=== PATIENT | male | born 1965 | race Caucasian/White ===

== ENCOUNTER 2020-08-02 13:49 | Outpatient (REF) | payer MEDICAID, SELFPAY | END 2020-08-02 13:50 | disposition home or self-care (01) | LOC: HO.LAB 13:49 | PROVIDERS: Visit Provider Internal Medicine | DX: Z20.828 Contact with and (suspected) exposure to other viral communicable diseases (principal) | CPT/HCPCS: 36415; C9803; U0003 ==

== ENCOUNTER 2021-08-13 13:58 | Outpatient (REF) | payer MEDICAID, SELFPAY | END 2021-08-13 13:59 | disposition home or self-care (01) | LOC: HO.US 13:58 | PROVIDERS: PCP Internal Medicine; Visit Provider Internal Medicine | DX: Z13.89 Encounter for screening for other disorder (principal) ==

== ENCOUNTER 2021-08-14 10:37 | Outpatient (REF) | payer MEDICAID, SELFPAY ==
--- NOTE | ~2021-08-14 | US_ITS ---
EXAMINATION: US RETROPERITONEAL COMPLETE (RENAL) CLINICAL INFORMATION: Kidney stone. COMPARISON: None TECHNIQUE: Real-time imaging of the kidneys and bladder. FINDINGS: RIGHT KIDNEY: 11.8 x 6.2 x 6.7 cm (SAG x AP x TRV). The kidney is normal in size, contour, and echogenicity. Renal cortical thickness is normal. No focal parenchymal lesions or hydronephrosis. Within the midpole there is a 3 mm echogenic focus likely representing a nonobstructing calculus. Within the lower pole there is a 3 mm echogenic focus likely representing a nonobstructing calculus. LEFT KIDNEY: 11.4 x 6.5 x 5.5 cm (SAG x AP x TRV). The kidney is normal in size, contour, and echogenicity. Renal cortical thickness is normal. No renal calculi or hydronephrosis. Within the lower pole there is a 1.4 cm simple-appearing cyst. BLADDER: Well distended and normal. Bilateral ureteral jets are demonstrated. Prevoid bladder volume is 432 mL. Postvoid bladder volume is 30.7 mL. ADDITIONAL FINDINGS: Prostate is enlarged with a volume of 51 mL. US/US retroperitoneal comp IMPRESSION: Nonobstructing right renal calculi. 1.4 cm left renal lower pole cyst. Small postvoid residual. Enlarged prostate gland. No evidence of obstructive uropathy.
== END 2021-08-14 10:38 | disposition home or self-care (01) ==
LOC: HO.HMGCX 10:37
PROVIDERS: PCP Internal Medicine; Visit Provider Internal Medicine
DX: N20.0 Calculus of kidney (principal)
CPT/HCPCS: 76770

== ENCOUNTER → 2021-10-14 10:55 | Outpatient (BNVA) | payer MEDICAID, SELFPAY | PROVIDERS: PCP Internal Medicine | DX: N20.0 Calculus of kidney (principal); R73.03 Prediabetes; F17.210 Nicotine dependence, cigarettes, uncomplicated; Z88.0 Allergy status to penicillin | CPT/HCPCS: 99202 ==

== ENCOUNTER 2021-11-20 14:21 | Outpatient (REF) | payer MEDICAID, SELFPAY ==
--- NOTE | ~2021-11-20 | US_ITS ---
EXAMINATION: US RETROPERITONEAL LIMITED (RENAL ONLY) CLINICAL INFORMATION: Calculus of kidney. COMPARISON: US retroperitoneal complete (renal) 08/14/2021. TECHNIQUE: Real-time imaging of the kidneys. FINDINGS: RIGHT KIDNEY: 11.2 x 5.2 x 5.5 cm (SAG x AP x TRV). The kidney is normal in size, contour, and echogenicity. Renal cortical thickness is normal. No focal parenchymal lesions or hydronephrosis. At the interpolar aspect, a 3 mm nonobstructing calculus is seen, with twinkle artifact. At the lower pole, a 3 mm nonobstructing calculus is seen, with twinkle artifact. LEFT KIDNEY: 11.3 x 6.2 x 5.6 cm (SAG x AP x TRV). The kidney is normal in size, contour, and echogenicity. Renal cortical thickness is normal. No renal calculi. There is mild pelviectasis, without terrence hydronephrosis. At the lower pole, a 1.3 cm in maximal diameter simple cyst is seen. US/US renal BI IMPRESSION: 1. Nonobstructing right renal calculi are seen. There is no right hydronephrosis. 2. No left renal calculus is seen. There is mild left pelviectasis, without terrence hydronephrosis. 3. A 1.3 cm left renal lower pole cyst is incidentally noted..
== END 2021-11-20 14:22 | disposition home or self-care (01) ==
LOC: HO.US 14:21
DX: N20.0 Calculus of kidney (principal); N28.1 Cyst of kidney, acquired
CPT/HCPCS: 76775

== ENCOUNTER → 2021-11-25 15:28 | Outpatient (BNVA) | payer MEDICAID, SELFPAY | PROVIDERS: PCP Internal Medicine | DX: N20.0 Calculus of kidney (principal) | CPT/HCPCS: 99212 ==

== ENCOUNTER → 2021-11-28 15:26 | Outpatient (BNVA) | payer MEDICAID, SELFPAY | PROVIDERS: PCP Internal Medicine; Referring Provider Internal Medicine; Visit Provider Nurse Practitioner | DX: Z12.11 Encounter for screening for malignant neoplasm of colon (principal) | CPT/HCPCS: 99202 ==

== ENCOUNTER 2021-11-29 10:02 | Outpatient (REF) | payer MEDICAID, SELFPAY ==
[2021-11-29 10:23] LABS: MANUAL DIFF FLAG NO
[2021-11-29 10:47] LABS: Basophils Percent Auto 0.5 % (0-2); Eosinophils Absolute Auto 0.2 X10*3/uL (0.0-0.4); Eosinophils Percent Auto 2.1 % (0-4); Hematocrit 43.2 % (42.0-52.0); Hemoglobin 14.6 g/dl (14.0-18.0); Imm Gran Abs Auto 0.05 X10*3/uL (0.00-0.03); Imm Gran Pct Auto 0.6 % (0.0-0.4); Mean Corpuscular HGB Conc 33.8 g/dl (31.0-36.0); Mean Corpuscular Volume 88.7 fL (80.0-98.0); Mean Platelet Volume 11.5 fL (9.4-12.4); Monocytes Absolute Auto 0.6 X10*3/uL (0.1-1.2); Monocytes Percent Auto 7.5 % (2-11); Neutrophils Absolute Auto 5.7 x10*3/uL (2.0-8.3); Neutrophils Percent Auto 66.3 % (45-73); Platelet Count 179 X10*3/uL (160-400); Red Blood Count 4.87 X10*6/uL (4.60-5.80); Red Cell Distribution Width 13.5 % (11.0-16.0); White Blood Count 8.6 X10*3/uL (4.8-10.8)
[2021-11-29 11:15] LABS: Alanine Aminotransferase 33 U/L (0-40); Albumin Level 4.3 g/dL (3.5-5.0); Alkaline Phosphatase 145 U/L (39-117); Anion Gap 11 (12-20); Aspartate Amino Transferase 20 U/L (5-37); Bilirubin Total 0.4 mg/dL (0.0-1.0); Blood Urea Nitrogen 8 mg/dL (9-16); Calcium 9.5 mg/dL (8.4-10.2); Carbon Dioxide 28 mmol/L (22-29); Chloride 104 mmol/L (96-108); Estimated Glomerular Filt Rate > 60; Glucose Random 106 mg/dL (60-115); Potassium 4.3 mmol/L (3.3-5.1); Sodium 139 mmol/L (135-145); Total Protein 6.8 g/dL (6.5-8.0)
== END 2021-11-29 10:03 | disposition home or self-care (01) ==
LOC: HO.LAB 10:02
PROVIDERS: PCP Internal Medicine; Visit Provider Nurse Practitioner
DX: Z12.11 Encounter for screening for malignant neoplasm of colon (principal)
CPT/HCPCS: 36415; 80053; 85025

== ENCOUNTER 2022-05-02 08:09 | Outpatient (REF) | payer MEDICAID, SELFPAY ==
--- NOTE | ~2022-05-02 | US_ITS ---
EXAMINATION: US RETROPERITONEAL LIMITED (RENAL ONLY) CLINICAL INFORMATION: Calculus of kidney. COMPARISON: Renal ultrasound 11/20/2021 and 08/14/2021. TECHNIQUE: Real-time imaging of the kidneys. FINDINGS: RIGHT KIDNEY: 10.6 x 4.5 x 6.7 cm (SAG x AP x TRV). The kidney is normal in size, contour, and echogenicity. Renal cortical thickness is normal. There are two 3 mm stones in the mid and lower pole. No focal parenchymal lesions or hydronephrosis. LEFT KIDNEY: 11.1 x 6.5 x 5.7 cm (SAG x AP x TRV). The kidney is normal in size, contour, and echogenicity. Renal cortical thickness is normal. There is a 1 x 1.2 cm cyst in the lower pole. No renal calculi or hydronephrosis. US/US renal BI IMPRESSION: Right renal stones. Small left renal cyst.
== END 2022-05-02 08:10 | disposition home or self-care (01) ==
LOC: HO.US 08:09
PROVIDERS: Visit Provider Urology
DX: N20.0 Calculus of kidney (principal)
CPT/HCPCS: 76775

== ENCOUNTER 2022-06-30 07:32 | Day surgery (SDC) | payer MEDICAID, SELFPAY ==
--- NOTE | 2022-06-27 13:56 | HO.ANESPROP2 ---
Documented by User: Brenda Torres NP 06/27/22 13:57 HPI - Anesthesia Eval Consult details Narrative: 57yo M for Colonoscopy PMFSH Active Problems Active Problems: All Active Problems (Updated 11/28/21 @ 15:33 by STACEY Ness) Colon cancer screening (Acute) Gingivitis (Acute) High cholesterol (Acute) Pre-diabetes (Acute) Headache syndrome (Acute) Renal calculi (Acute) Past Medical History Medical History Gingivitis History of kidney stones Periodontitis Renal calculi Surgical History Surgical History H/O cystoscopy History of abdominal surgery Hx of cholecystectomy Social History Social History (Updated 06/30/22 @ 08:23 by Princess Pugh MD) Patient Tobacco Use Status: Current everyday Tobacco user Tobacco use type: Cigarette Cigarettes Per Day: 8 Smoked in Last 30 Days: Yes Use of substances other than those prescribed or required for medical reasons: No Are you DNR?: No Advance Directives: No Advance Directives Information Provided: Yes Advance Directives on File: No Meds Allergies Allergy/AdvReac Type Severity Reaction Status Date / Time Penicillins Allergy Intermediate Hives Verified 11/28/21 15:30 Home Medications Medication Instructions Recorded Confirmed Last Taken Type aspirin 81 mg tablet,delayed 81 mg PO DAILY 06/30/22 06/30/22 Unknown History release atorvastatin 10 mg tablet 1 tab PO DAILY 06/30/22 06/30/22 Unknown History Exam Exam Date and Time: June 27, 2022 1356 Pertinent Lab Results Pertinent Lab Results: Laboratory Tests 11/29/21 11/29/21 10:22 10:22 WBC 8.6 Hgb 14.6 Hct 43.2 Plt Count 179 Sodium 139 Potassium 4.3 Chloride 104 Carbon Dioxide 28 BUN 8 L Creatinine 0.96 Assessment and Plan Assessment Anesthesia Assessment: Chart Reviewed Documented by User: Princess Pugh MD 06/30/22 08:24 COUNT INCLUDES THE [facility] Past Medical History Medical History Gingivitis History of kidney stones Periodontitis Renal calculi Family History Family history of problems with anesthesia: No Surgical History Surgical History H/O cystoscopy History of abdominal surgery Hx of cholecystectomy History of Problems with Anesthesia: Yes (Agitation with general anesthesia ) Social History Social History (Updated 06/30/22 @ 08:23 by Princess Pugh MD) Patient Tobacco Use Status: Current everyday Tobacco user Tobacco use type: Cigarette Cigarettes Per Day: 8 Smoked in Last 30 Days: Yes Use of substances other than those prescribed or required for medical reasons: No Are you DNR?: No Advance Directives: No Advance Directives Information Provided: Yes Advance Directives on File: No Meds Allergies Allergy/AdvReac Type Severity Reaction Status Date / Time Penicillins Allergy Intermediate Hives Verified 11/28/21 15:30 Home Medications Medication Instructions Recorded Confirmed Last Taken Type aspirin 81 mg tablet,delayed 81 mg PO DAILY 06/30/22 06/30/22 Unknown History release atorvastatin 10 mg tablet 1 tab PO DAILY 06/30/22 06/30/22 Unknown History Exam Height,Weight and Vital Signs: Height 5 ft 5 in Weight 68.039 kg Vital Signs Temp Pulse Resp BP Pulse Ox O2 Del Method 06/30/22 07:48 97.2 F 75 16 115/69 97 Room Air Airway Mallampati Class: III TM Dist: >3cm Neck ROM: Full Partial: Upper (Glued in. Last removed 2 years ago) Heart: RRR Lungs: CTAB Assessment and Plan Assessment Anesthesia Assessment: Anesthesia Plan Discussed Final Anesthetic Review Family History of Problems with Anesthesia: No History of Problems with Anesthesia: Yes (Agitation with general anesthesia ) NPO: Yes ASA Class: II Final Preanesthetic Review: No Changes in Pt Med Stat, Meds/Allgs Chart Reviewed, Consent Obtained/Reviewed and Anes Risks/Benef Reviewed Patient Risk: Low Procedure Risk: Low Assessment/Block/Sedation in SS: Assess/Block/Sedation-SS Anesthetic Plan Anesthetic Plan: MAC: Disposition: Standard PACU
[2022-06-30 07:48] VITALS: BP 115/69; PULSE 75; RESP 16; TEMP 36.2; O2SAT 97
[2022-06-30 07:58] VITALS: BMI 25.0
[2022-06-30] MEDS: Lactated Ringers 1,000 ML 100 ML IVCONT (08:16)
--- NOTE | 2022-06-30 09:24 | MHC.SHP ---
Pre-Procedural Eval Section A Date of Service: 06/30/22 Section B Chief Complaint: screening Details of Present Illness: 57 y.o M at average risk of CRC here for colonoscopy. Seen with translator interpreter Relevant Family History (Specify if Yes): No Present Medications: see Short Stay Collaborative assessment Medical History: Significant History (prediabetes, HLD ) History of Previous Operations: No relevant previous surgery Allergies: Allergies Allergy/AdvReac Type Severity Reaction Status Date / Time Penicillins Allergy Intermediate Hives Verified 11/28/21 15:30 Review of Systems Review of Systems Comment: 10 point ROS negative except as above Exam Exam Comment: Gen appear: No acute distress, well nourished HEENT: no icterus Chest: No overt resp distress Abd: soft, nontender, nondistended Psych: Stable affect, answering questions appropriately Neuro: A/Ox3 noted to move all extremities spontaneously Ext: no peripheral edema Plan Diagnosis/Plan: Unchanged I have reviewed the history and physical and performed a pertinent physical examination on my patient. No changes have occurred unless specified.
--- NOTE | 2022-06-30 09:26 | P.OP_ITS ---
Operative Note Operative Note Date of Service: 06/30/22 Narrative: Procedure: Colonoscopy Indication: Screening Endoscopist: Monique Marks MD Anesthesia Provider: Brigida Perry Anesthesia type: MAC Instrument: Olympus [id number]-H190L Consent: Indication, risks vs benefits, and alternatives were discussed with the patient who gave written informed consent to proceed. An reading efficiency course director was utilized to assist with the consent.EKG, pulse, pulse oximetry and blood pressure were monitored throughout the procedure. Please see anesthesia flowsheet. Procedure: The patient was brought to the procedure room and placed in the left lateral decubitus position. IV medications were administered by the anesthesia provider in attendance. A digital rectal exam was performed which was normal. The colonoscope was then inserted through the anus and advanced through the colon to the cecum at 75 cm,and terminal ileum. Mucosa was carefully examined under high definition white light as the instrument was slowly withdrawn in a retrograde panoramic fashion. Retroflexion was performed in rectum. The proc edure was not difficult. There were no immediate obvious complications. The quality of the prep was BBPS: 3+3+3 = excellent Withdrawal time 16 minutes. Limitations: No limitations. Findings: Mucosa: Normal to cecum and terminal ileum. Protruding lesions: * 1 semi-pedunculated polyp of size 6 mm in rectum. Hot snare polypectomy was performed. The polyp was completely removed and retrieved. * Medium internal hemorrhoids without stigmata of recent bleeding. Excavated lesions: * Few small mouthed diverticula in sigmoid colon. Impression: 1. Normal colon and terminal ileum mucosa 2. Total of 1 polyp removed from rectum. 3. Sigmoid diverticulosis 4. Internal hemorrhoids Recommendations: - Follow path results. - Repeat colonoscopy in 7-10 years if polyp is adenoma.
[2022-06-30 09:30] VITALS: BP 88/48; PULSE 70; RESP 16; TEMP 36.1; O2SAT 98
[2022-06-30 09:45] VITALS: BP 101/69; PULSE 74; RESP 15; TEMP 36.1; O2SAT 97
[2022-06-30 10:00] VITALS: BP 102/69; PULSE 61; RESP 12; TEMP 36.6; O2SAT 98
== END 2022-06-30 10:33 | disposition home or self-care (01) ==
PROVIDERS: PCP Internal Medicine; Visit Provider Internal Medicine
PROC: 0DJD8ZZ Inspection of Lower Intestinal Tract, Via Natural or Artificial Opening Endoscopic (ICD-10-PCS; CPT 45378; principal; 2022-06-30 08:40)
DX: Z12.11 Encounter for screening for malignant neoplasm of colon (principal); D12.8 Benign neoplasm of rectum; K57.30 Diverticulosis of large intestine without perforation or abscess without bleeding; K64.8 Other hemorrhoids; R73.03 Prediabetes; K05.10 Chronic gingivitis, plaque induced; K05.30 Chronic periodontitis, unspecified; E78.00 Pure hypercholesterolemia, unspecified; Z79.899 Other long term (current) drug therapy; Z79.82 Long term (current) use of aspirin; Z88.0 Allergy status to penicillin; Z87.442 Personal history of urinary calculi; Z90.49 Acquired absence of other specified parts of digestive tract; F17.210 Nicotine dependence, cigarettes, uncomplicated; Z98.890 Other specified postprocedural states
CPT/HCPCS: 45385; 88305

== ENCOUNTER 2022-09-02 12:07 | Outpatient (REF) | payer MEDICAID, SELFPAY ==
--- NOTE | ~2022-09-02 | CT_ITS ---
EXAMINATION: CT ABDOMEN AND PELVIS WITH CONTRAST CLINICAL INFORMATION: Pain in surgical scar left lower quadrant. COMPARISON: Ultrasound renal 05/02/2022. TECHNIQUE: Multidetector volumetric images were obtained from the superior aspect of the liver through the pubic symphysis following administration 85 mL of Omnipaque 350 intravenous contrast. Sagittal and coronal reformatted images were obtained on the technologist's workstation. Oral contrast: No This CT examination was performed using dose optimization techniques as appropriate, variously including the following: *Automated exposure control *Adjustment of mA and/or kV according to patient size (this includes techniques or standardized protocols for targeted exams where dose is matched to indication/reason for exam; i.e. extremities or head) *Use of iterative reconstruction technique DLP: 452 mGy-cm FINDINGS: LUNG BASES: There is minimal atelectatic changes seen in both lung bases. LIVER, GALLBLADDER, AND BILIARY TREE: The liver is normal in size, shape, and attenuation. No focal hepatic lesion or biliary ductal dilatation is present. The gallbladder has been surgically removed. PANCREAS: Unremarkable. SPLEEN: Unremarkable. ADRENAL GLANDS: Unremarkable. KIDNEYS AND URETERS: The kidneys are normal in size, shape, and attenuation. No hydronephrosis, hydroureter, or calculi seen. No perinephric stranding. BLADDER: Unremarkable. GASTROINTESTINAL TRACT: There is scattered stool, oral contrast and gas seen throughout the the colon without distention. The small bowel loops are normal caliber. Appendix is normal caliber. No inflammatory process, free air or free fluid seen. ABDOMINAL WALL: No significant hernia is appreciated. LYMPH NODES: Small shotty lymph nodes are seen in the retroperitoneum measuring 5 to 7 mm. VASCULAR: Unremarkable. PELVIC VISCERA: There is moderate heterogeneous prostate enlargement. OSSEOUS STRUCTURES: No aggressive lytic or sclerotic process seen. CT/CT abdomen pelvis w IV con IMPRESSION: Mild constipation. No acute intra-abdominal process seen. There is no evidence of abdominal wall hernia or scarring seen in the left lower quadrant. Heterogeneous mildly enlarged prostate gland. Fleischner guidelines were followed.
[2022-09-02] MEDS: iohexoL 350 MG/ML 100 ML INFUS..BTL IV (14:46)
[2022-09-06 13:57] LABS: Creatinine POC 0.8 mg/dL (0.5-1.4); GFR POC > 60
== END 2022-09-02 12:08 | disposition home or self-care (01) ==
LOC: HO.CT 12:07
PROVIDERS: PCP Registered Nurse; Visit Provider Registered Nurse
DX: R10.32 Left lower quadrant pain (principal); L90.5 Scar conditions and fibrosis of skin
CPT/HCPCS: 74177; 82565; Q9967

== ENCOUNTER 2022-10-03 15:00 | Outpatient (REF) | payer MEDICAID, SELFPAY ==
--- NOTE | ~2022-10-03 | CT_ITS ---
EXAMINATION: CT CHEST SCREENING CLINICAL INFORMATION: Half pack smoker for 40 pack years. COMPARISON: None available. TECHNIQUE: Multidetector volumetric CT imaging of the chest is performed without contrast using low dose technique. Additional 2D coronal and sagittal reformatted images and axial 3D maximum intensity projection (MIP) images are generated on the CT workstation. This CT examination was performed using dose optimization techniques as appropriate, variously including the following: *Automated exposure control *Adjustment of mA and/or kV according to patient size (this includes techniques or standardized protocols for targeted exams where dose is matched to indication/reason for exam; i.e. extremities or head) *Use of iterative reconstruction technique DLP: 45 mGy-cm FINDINGS: LUNGS: The lungs are well-expanded and clear of acute pneumonic process. There are 2 mm calcifications left upper lobe, right upper lobe and both lower lobes. There are no noncalcified pulmonary nodules, mass or consolidation. MEDIASTINUM: The thyroid lobes are symmetrical and normal. The central trachea and bronchi are widely patent. The heart size and pulmonary vascularity is normal. There are no abnormal mediastinal or hilar lymph nodes seen. There is no pericardial effusion. CORONARY ARTERY CALCIFICATION: Trace coronary artery calcifications are seen. PLEURA: There is no pleural effusion. No pleural mass or thickening. AXILLA: No lymphadenopathy. UPPER ABDOMEN: Visualized liver, spleen, pancreas and bilateral adrenal glands are unremarkable. Gallbladder has been surgically removed. OSSEOUS STRUCTURES: No aggressive lytic or sclerotic process seen. CT/CT lung screening IMPRESSION: Small punctate calcified bilateral pulmonary nodules likely small granulomas. No noncalcified nodules seen. ASSESSMENT: Lung-RADS category 2: Benign. RECOMMENDATION: Low-dose annual CT chest.
== END 2022-10-03 15:01 | disposition home or self-care (01) ==
LOC: HO.CT 15:00
PROVIDERS: PCP Registered Nurse; Visit Provider Physician Assistant Medical
DX: Z12.2 Encounter for screening for malignant neoplasm of respiratory organs (principal); F17.210 Nicotine dependence, cigarettes, uncomplicated
CPT/HCPCS: 71271; G0296

== ENCOUNTER 2023-03-12 09:25 | Outpatient (REF) | payer MEDICAID, SELFPAY ==
[2023-03-12 11:49] LABS: Anion Gap 10 (12-20); Blood Urea Nitrogen 9 mg/dL (9-16); Calcium 9.2 mg/dL (8.4-10.2); Carbon Dioxide 26 mmol/L (22-29); Chloride 107 mmol/L (96-108); Cholesterol 222 mg/dL; Estimated Glomerular Filt Rate > 60; Glucose Random 107 mg/dL (60-115); HDL Cholesterol 34 mg/dL; LDL Cholesterol Calculated 158 mg/dl; Potassium 3.9 mmol/L (3.3-5.1); Sodium 139 mmol/L (135-145); Triglycerides 151 mg/dL
[2023-03-12 12:05] LABS: ~HepC Num1 0.19 S/CO (0.00-0.79); ~Hepatitis C Antibody Nonreactive (Nonreactive)
== END 2023-03-12 09:26 | disposition home or self-care (01) ==
LOC: HO.HHCL 09:25
PROVIDERS: Visit Provider Registered Nurse
DX: Z00.00 Encounter for general adult medical examination without abnormal findings (principal); E78.1 Pure hyperglyceridemia; E78.6 Lipoprotein deficiency
CPT/HCPCS: 36415; 80048; 80061; 86803

== ENCOUNTER 2023-05-12 13:58 | Outpatient (REF) | payer MEDICAID, SELFPAY ==
--- NOTE | ~2023-05-12 | US_ITS ---
EXAMINATION: US RETROPERITONEAL LIMITED (RENAL ONLY) CLINICAL INFORMATION: Calculus of kidney. COMPARISON: CT abdomen and pelvis 09/02/2022. Renal ultrasound 05/02/2022 and 11/20/2021. TECHNIQUE: Real-time imaging of the kidneys. FINDINGS: RIGHT KIDNEY: 11.3 x 4.5 x 6.0 cm (SAG x AP x TRV). The kidney is normal in size, contour, and echogenicity. Renal cortical thickness is normal. No calculi or focal parenchymal lesions. No hydronephrosis. LEFT KIDNEY: 10.8 x 4.6 x 5.9 cm (SAG x AP x TRV). The kidney is normal in size, contour, and echogenicity. Renal cortical thickness is normal. No renal calculi or hydronephrosis. At the lower pole, a 1.3 cm benign, simple cyst is seen, for which no imaging follow-up is recommended. US/US renal BI IMPRESSION: Unremarkable examination.
== END 2023-05-12 13:59 | disposition home or self-care (01) ==
LOC: HO.US 13:58
PROVIDERS: Visit Provider Urology
DX: N20.0 Calculus of kidney (principal)
CPT/HCPCS: 76775

== ENCOUNTER 2023-12-14 10:01 | Outpatient (REF) | payer MEDICAID, SELFPAY ==
[2023-12-14 11:46] LABS: Estimated Average Glucose 117 mg/dL; Hemoglobin A1C 148.6055 umol/L; Hemoglobin A1c % 5.7 % (<6.0)
[2023-12-14 11:52] LABS: Anion Gap 13 (12-20); Blood Urea Nitrogen 7 mg/dL (9-16); Calcium 9.1 mg/dL (8.4-10.2); Carbon Dioxide 27 mmol/L (22-29); Chloride 105 mmol/L (96-108); Cholesterol 210 mg/dL (<200); Estimated Glomerular Filt Rate > 60; Glucose Random 91 mg/dL (60-115); HDL Cholesterol 34 mg/dL (>40); LDL Cholesterol Calculated 129 mg/dL (<100); Potassium 4.1 mmol/L (3.3-5.1); Sodium 141 mmol/L (135-145); Triglycerides 236 mg/dL (<150)
== END 2023-12-14 10:02 | disposition home or self-care (01) ==
LOC: HO.HHCL 10:01
PROVIDERS: Visit Provider Nurse Practitioner Family
DX: E78.49 Other hyperlipidemia (principal); R73.03 Prediabetes
CPT/HCPCS: 36415; 80048; 80061; 83036

== ENCOUNTER 2024-09-06 09:30 | Outpatient (AMB) | payer MEDICAID, SELFPAY ==
[2024-09-06 09:37] VITALS: BP 128/76; PULSE 76; BMI 26.4
--- NOTE | 2024-09-06 09:37 | MHC.OFFVIS ---
Vital Signs 09/06/24 09:37 Height 5 ft 5 in Weight 158 lb 11.725 oz BMI 26.4 BP 128/76 Blood Pressure Location Lt brachial Position Sitting Pulse 76 Intake Visit Reasons: r/s 05/17/24 manager net/dr samson/chest pain Cook'S Assistant Required: Yes Cook'S Assistant Services: Cook'S Assistant Present Cook'S Assistant Name: Thu [id number] Accompanied by: Self / Same As Patient Allergies Penicillins Allergy (Intermediate, Verified 11/28/21 15:30) Hives Medication List - Last Reconciled 09/06/24 by Manuel Olvera MD aspirin 81 mg PO DAILY atorvastatin 1 tab PO DAILY HPI Comments Details: Dany is here for consultation regarding chest discomfort. No known coronary disease or myocardial infarction or cardiomyopathy. He apparently gets episodes of chest burning on the left side. This can happen whenever he is stressed out. However, nonexertional. Hence not entirely classic for angina. He is a smoker and he states that he smokes cigars regularly. Denies any family history of premature CAD. [facility] Medical History (Updated 09/06/24 @ 09:48 by Manuel Olvera MD) BPH (benign prostatic hyperplasia) Nicotine dependence, cigarettes, uncomplicated Hyperlipidemia Tubular adenoma of colon Pre-diabetes Renal calculi History of kidney stones Gingivitis Periodontitis Surgical History History of lithotripsy History of cholecystectomy History of cystoscopy History of colonoscopy History of abdominal surgery Family History (Updated 09/06/24 @ 09:39 by Tasia Sanchez CMA) Brother Diabetes mellitus Social History (Updated 09/06/24 @ 09:38 by Tasia Sanchez CMA) Alcohol intake: never Patient Tobacco Use Status: Current everyday Tobacco user Tobacco use type: Cigarette Cigarettes Per Day: 6 Years Smoked: (onset 19yo, 1ppd x 38yrs, now 1/3ppd - 35pyh) Review of Systems Const Denies chills, Denies fatigue, Denies fever(s), Denies weight gain and Denies weight loss Eyes Denies loss of vision ENT Denies dizziness Card Denies chest pain, Denies leg edema, Denies lightheadedness, Denies palpitations, Denies dyspnea on exertion, Denies orthopnea and Denies other Resp Denies cough, Denies dyspnea on exertion and Denies wheezing GI Denies hematochezia and Denies change in stool character Denies dysuria and Denies urinary frequency Musc Denies abnormal gait, Denies muscle weakness, Denies numbness, Denies radiating pain into limb and Denies tingling Skin/Breast Denies nail changes and Denies rash Neuro Denies Abnormal speech present, Denies abnormal gait, Denies dizziness, Denies loss of vision, Denies memory loss, Denies numbness and Denies tingling Psych Denies depression and Denies memory loss Endo Denies fatigue and Denies palpitations Jose Guadalupe/Lymph Denies easy bruising Aller/Immun Denies wheezing Physical Exam Vital Signs: Last Vital Signs Pulse 76 09/06/24 09:37 BP 128/76 09/06/24 09:37 BMI result Body Mass Index 26.4 Const General: comfortable and no acute distress Orientation/consciousness: patient oriented x3 HEENT Other: Unremarkable Head: Yes normal to inspection Neck Neck: Yes normal visual inspection Chest Chest palpation & inspection: normal inspection of the chest Resp Auscultation: clear to auscultation bilaterally Cardio Palpation: normal PMI Heart sounds: S1 normal heart sound present, S2 normal heart sound present, no gallops, no murmurs and no rubs GI Palpation (GI): Soft to palpation Back/Spine/Pelvis Other: unremarkable Skin General skin exam: no rashes or lesions noted Neuro General: patient oriented x3 Speech: No Abnormal speech present Extrem General: Yes normal to inspection Psych Mental Status: mental status grossly normal Office Procedures EKG Details: EKG with underlying sinus rhythm at 76/Min; no significant ST-T changes and otherwise unremarkable[place] [id number], Complete Assessment & Plan Assessment & Plan (1) Precordial chest pain: Code(s): R07.2 - Precordial pain Category: Medical Plan Left-sided burning chest pain during times of mental stress, but not during exertion; smoker. Sounds somewhat atypical for angina but with smoking history, needs further workup. Baseline EKG unremarkabl We will obtain echocardiogram/stress test for further evaluation. e. Follow-up after the above. Orders: Orders CA echo transthoracic complete Today R07.2 - Precordial pain CA echo stress exercise Today R07.2 - Precordial pain Coding Level of Care Code New Pt Level 4 (46392) Diagnoses Precordial chest pain R07.2 CPT Codes EKG - CPT: 82462-[id number], Complete ([id number])
== END 2024-09-06 09:56 | disposition home or self-care (01) ==
PROVIDERS: PCP Registered Nurse; Visit Provider Internal Medicine
DX: R07.2 Precordial pain (principal)
CPT/HCPCS: 93010; 99204

== ENCOUNTER → 2024-09-06 09:30 | Outpatient (BNVA) | payer MEDICAID, SELFPAY | PROVIDERS: PCP Registered Nurse; Visit Provider Internal Medicine | DX: R07.2 Precordial pain (principal) | CPT/HCPCS: 93005; 99202 ==